=== PATIENT | female | born 1990 | race Two or more races ===

== ENCOUNTER 2019-05-30 11:15 | Inpatient (IN) | payer OTHER ==
[~2019-05-30] VITALS: Ht 167.6 cm; Wt 90.3 kg
[2019-06-06] MEDS ORDERED: INTEGRA F CAPS1 EACH PO (14:45)
[2019-06-06] MEDS ORDERED: LEVOTHYROXINE25 MCG PO (14:58)
== END 2019-06-08 16:26 | disposition home or self-care (01) | DRG 787 ==
LOC: OB/GYN 06-06 10:42 → LDR 06-06 10:42 → OB/GYN 06-06 15:12
PROVIDERS: ADMIT Obstetrics & Gynecology
PROC: 4A1HXCZ Monitoring of Products of Conception, Cardiac Rate, External Approach (ICD-10-PCS; 2019-06-06)
PROC: 10D00Z1 Extraction of Products of Conception, Low, Open Approach (ICD-10-PCS; principal; 2019-06-06 13:00)
DX: O64.1XX0 Obstructed labor due to breech presentation, not applicable or unspecified (principal); O41.03X0 Oligohydramnios, third trimester, not applicable or unspecified; Z3A.38 38 weeks gestation of pregnancy; Z37.0 Single live birth

== ENCOUNTER 2019-06-18 11:28 | Inpatient (IN) | payer OTHER ==
[~2019-06-18] VITALS: Ht 165.1 cm; Wt 86.6 kg
[~2019-06-18 11:28] MED LIST: INTEGRA F CAPS1 EACH PO; LEVOTHYROXINE25 MCG PO
[2019-06-18] MEDS ORDERED: LABETALOL HCL100 MG PO (16:16)
[2019-06-19] MEDS ORDERED: INTEGRA F CAPS1 EAC1 (08:08)
[2019-06-19] MEDS ORDERED: CAMILA0.35 MG (08:08)
== END 2019-06-19 11:58 | disposition home or self-care (01) | DRG 776 ==
LOC: LDR 11:28
PROVIDERS: ADMIT Obstetrics & Gynecology
DX: O14.15 Severe pre-eclampsia, complicating the puerperium (principal)

== ENCOUNTER 2022-08-26 11:07 | Emergency (ER) | payer OTHER ==
[~2022-08-26] VITALS: Ht 167.6 cm; Wt 67.6 kg
[~2022-08-26 11:07] MED LIST changes: +CAMILA0.35 MG; +INTEGRA F CAPS1 EAC1; +LABETALOL HCL100 MG PO
== END 2022-08-26 14:55 | disposition home or self-care (01) ==
LOC: ER 11:07
DX: B34.9 Viral infection, unspecified (principal); R53.81 Other malaise; Z20.822 Contact with and (suspected) exposure to COVID-19; Z91.018 Allergy to other foods

== ENCOUNTER 2023-01-17 10:02 | Emergency (ER) | payer OTHER ==
[~2023-01-17] VITALS: Ht 167.6 cm; Wt 64.9 kg
[2023-01-17 11:35] LABS: HEMATOCRIT 40.3 % (36.0-45.00); HEMOGLOBIN 13.5 g/dL (12.0-15.00); MEAN CELL VOLUME 88.7 fL (80.00-100.00); MEAN CORPUSCULAR HEMOGLOBIN 29.6 pg (27.00-32.0); MEAN CORPUSCULAR HGB CONC 33.4 g/dl (32.0-36.0); PLATELET COUNT 275 K/uL (150-450); RED BLOOD COUNT 4.55 M/uL (4.00-6.00); RED CELL DISTRIBUTION WIDTH 13.3 % (11.5-14.5)
[2023-01-17 11:42] LABS: PH,URINE 5.5 (5.0-8.0); URINE APPEARANCE Cloudy; URINE BILIRRUBIN Negative (NEGATIVE); URINE BLOOD Small; URINE COLOR Dark Yellow; URINE GLUCOSE Negative (NEGATIVE); URINE LEUKOCYTE Trace; URINE NITRATE Negative; URINE PROTEIN Trace (NEGATIVE)
[2023-01-17 11:47] LABS: URINE BACTERIA 1335.5 uL (0.0-1933); URINE EPITHELIAL CELLS 39.2 uL (0.0-38.8); URINE RBC 37.2 uL (0.0-20.8)
[2023-01-17 11:58] LABS: ALBUMIN 4.2 gm/dL (3.4-5.0); BILIRUBIN TOTAL 0.59 mg/dL (0.3-1.2); CREATININE SERUM 0.77 mg/dL (0.55-1.02); GFR 85.81; GLOBULINA 4.2 G/DL (2.4-3.5); POTASSIUM 3.93 mEq/L (3.5-5.1); TOTAL PROTEIN 8.4 gm/dL (6.4-8.2)
[2023-01-17 12:33] LABS: URINE CRYSTALS MODERATE /HPF
[2023-01-17 12:34] LABS: URINE MUCUS MODERATE
== END 2023-01-17 14:58 | disposition home or self-care (01) ==
LOC: ER 10:02
PROVIDERS: Emergency Medicine
DX: K52.89 Other specified noninfective gastroenteritis and colitis (principal); Z91.018 Allergy to other foods

== ENCOUNTER 2025-01-20 21:21 | Emergency (ER) | payer OTHER ==
[~2025-01-20] VITALS: Ht 165.1 cm; Wt 72.6 kg
[2025-01-20] MEDS ORDERED: TRAZODONE HCL5 GM (21:54)
[2025-01-20] MEDS ORDERED: ADDERALL 10 MG10 MG (21:54)
[2025-01-20 22:01] VITALS: BP 104/73; O2SAT 100
[2025-01-20] MEDS ORDERED: ONDANSETRON HCL 2 MG/ML VIAL IV STA (23:40)
[2025-01-20] MEDS ORDERED: 0.9 % SODIUM CHLORIDE 1,000 ML IV ONE (23:45)
[2025-01-20] MEDS ORDERED: FAMOTIDINE/PF 20 MG/2 ML VIAL IV ONE (23:45)
[2025-01-20] MEDS ORDERED: ONDANSETRON HCL 2 MG/ML VIAL ONE (23:48)
[2025-01-20] MEDS ORDERED: FAMOTIDINE/PF 20 MG/2 ML VIAL ONE (23:48)
[2025-01-21 00:31] LABS: BASO % 0.2 % (0.1-1.2); EOS # 0.00 (0.04-0.54); EOS % 0.0 % (0.7-7.0); LYMPH # 0.56 (1.18-3.74); LYMPH % 5.3 % (19.3-53.1); MEAN PLATELET VOLUME 9.30 fl (9.4-12.4); MONO # 0.34 (0.24-0.82); MONO % 3.2 % (4.7-12.5); NEUT # 9.64 (1.56-6.13); NEUT % 91.0 % (34.0-71.1); RED CELL DISTRIBUTION WIDTH 11.9 % (11.6-14.4)
[2025-01-21 00:44] LABS: ALT/SGPT 18 U/L (12-78); AST/SGOT 15 U/L (15-37); BILIRUBIN TOTAL 0.43 mg/dL (0.3-1.2); BUN CREA RATIO 17 (7.0-25.0); CREATININE SERUM 0.71 mg/dL (0.55-1.02); GFR 93.14; GLOBULINA 4.2 G/DL (2.4-3.5); GLUCOSE FASTING 93 mg/dL (65-100); OSMOLALITY SERUM 279 MOSM/KG (275-295)
[2025-01-21 01:18] LABS: URINE APPEARANCE Clear; URINE BILIRRUBIN Negative (NEGATIVE); URINE BLOOD Negative; URINE COLOR Yellow; URINE GLUCOSE Negative (NEGATIVE); URINE LEUKOCYTE Trace; URINE NITRATE Negative; URINE PROTEIN Trace (NEGATIVE); URINE UROBILINOGEN 0.2 E.U./dl
[2025-01-21 01:22] LABS: URINE BACTERIA 508.8 uL (0.0-1933); URINE EPITHELIAL CELLS 18.6 uL (0.0-38.8); URINE RBC 56.4 uL (0.0-20.8); URINE WBC 2.6 uL (0.0-23.2)
[2025-01-21 01:34] LABS: URINE CAST 0.43 uL (0.0-1.40); URINE KETONE 80 (NEGATIVE)
[2025-01-21] MEDS ORDERED: INTESTINEX680 M2 PO (02:56)
[2025-01-21] MEDS ORDERED: ACID REDUCER20 M1 PO (02:56)
[2025-01-21] MEDS ORDERED: PEPCID AC20 MG PO (02:56)
== END 2025-01-21 05:25 | disposition home or self-care (01) ==
LOC: ER 21:22
PROVIDERS: Physician Assistant Medical
DX: B34.9 Viral infection, unspecified (principal); K52.89 Other specified noninfective gastroenteritis and colitis; E86.0 Dehydration; R11.10 Vomiting, unspecified; Z91.018 Allergy to other foods